=== PATIENT | male | born 1980 | race Caucasian/White ===

== ENCOUNTER 2017-01-23 20:12 | Emergency (ER) | payer OTHER ==
[2017-01-23 20:18] VITALS: BP 172/101; PULSE 88; RESP 18; O2SAT 100
--- NOTE | 2017-01-23 21:06 | ED.REPORT ---
HPI-General Illness Date of Service Jan 23, 2017 ED Provider: Dr. Yefri Hernández MD A 36 year old male with no pertinent medical history presents to the ED complaining of lightheadedness that began this morning. He initially believed that his lightheadedness was due to caffeine consumption this morning. Patient has become increasingly active over the past few weeks and he reports abstaining from caffeine use for the past 4 days prior to this morning. Patient has been pushing fluids today with no relief. He also drank one DrAysha Hunter and ate one pretzel to help relieve his symptoms. Associated symptoms today include leg "tremors" and general malaise. Patient is currently expressing concern for dehydration. He denies any cardiac history. Nursing Notes Stated Complaint: DEHYDRATED Chief Complaint: General Complaint Nursing Notes Reviewed: Yes Allergies: Coded Allergies: No Known Allergies (Unverified Allergy, Unknown, 01/23/17) General Time Seen by MD: 21:05 Chief Complaint Other (Lightheadedness) Hx Obtained From: Patient Arrived By: Walk-in Sudden in Onset?: No Onset Occurred: 9 - 12 hours ago Symptom Duration: Since onset Pertinent Negative: Pt denies other symptoms Recent Healthcare: No recent doctor visit, No recent hospitalization Past Medical History Past Medical History None reported. Past Surgical History None reported. Smoking History Former Smoker (quit three months ago) Social History Alcohol Use: Denies alcohol use Drug Use: Denies drug use Other Social History: , Local resident Ambulatory Status Independent Review of Systems + Leg "tremors" Full Review of Systems Constitutional: Reports: Malaise Neurologic: Reports: Lightheaded Complete sys rev & neg: except as marked. Physical Exam Vital Signs Vital Signs Date Time Temp Pulse Resp B/P Pulse Ox O2 Delivery O2 Flow Rate FiO2 01/23/17 22:49 78 16 149/81 99 Room Air 01/23/17 20:18 36.5 88 18 172/101 100 Room Air Initial VS: Reviewed Neck: Supple, Non-tender, Full range of motion Extremities: Vascular intact, Neuro intact, No swelling, No tenderness Psychiatric: Mood/affect normal, Behavior normal, Normal thought content General/Constitutional: Awake, Alert, No acute distress, Well appearing, Well developed Behavior: Positive: Anxious Head / Eyes: Atraumatic, Normocephalic, PERRL ENT: Atraumatic, Airway patent Mouth: Positive: Mucous membranes dry (Mild) Respiratory / Chest: Atraumatic, Breath sounds NL, Breath sounds = bilat, No respiratory distress Cardiovascular: Heart rate NL, Regular rhythm, Heart sounds NL Abdomen: Atraumatic, Soft Skin: Atraumatic, Color NL, No rash, Warm, Dry, Intact, Turgor NL Neurologic: Oriented X3, Speech NL, No motor deficits, No sensory deficits, CN II - XII intact, Reflexes equal bilat Interpretation & Diagnostics Lab Results Interpretation Result Diagram: 01/23/17213901/23/172139 Test 01/23/17 21:40 01/23/17 21:55 White Blood Count 7.7th/mm3 (3.8-10.1) Red Blood Count 4.03mil/mm3 (4.40-5.80) Hemoglobin 12.4g/dL (13.8-17.2) Hematocrit 36.1% (41.0-50.0) Mean Corpuscular Volume 89.6fL (81-100) Mean Corpuscular Hemoglobin 30.8pg (27.0-35.0) Mean Corpuscular Hemoglobin Concent 34.3% (32.0-37.0) Red Cell Distribution Width 11.6% (12.3-15.4) Platelet Count 243bil/L (150-400) Neutrophils (%) (Auto) 65.3% (40-74) Lymphocytes (%) (Auto) 23.8% (14-46) Monocytes (%) (Auto) 9.3% (4-12) Eosinophils (%) (Auto) 1.2% (0-5) Basophils (%) (Auto) 0.3% (0-3) Sodium Level 128mEq/L (134-144) Potassium Level 3.5mEq/L (3.5-5.2) Chloride Level 93mEq/L (97-108) Carbon Dioxide Level 20mmol/L (18-29) Blood Urea Nitrogen 10mg/dL (6-20) Creatinine 0.86mg/dL (0.76-1.27) Estimat Glomerular Filtration Rate 108mL/min (>59) Glucose Level 131mg/dL (60-99) Calcium Level 8.7mg/dL (8.5-10.1) Magnesium Level 2.0mg/dL (1.6-2.6) Total Bilirubin 0.4mg/dL (0.0-1.2) Aspartate Amino Transf (AST/SGOT) 17U/L (0-50) Alanine Aminotransferase (ALT/SGPT) 17U/L (0-44) Alkaline Phosphatase 60U/L (25-150) Total Protein 6.5g/dL (6.4-8.4) Albumin 4.2g/dL (3.4-5.0) Hold Quinn Top Tube Received (Received) Urine Color Straw (YELLOW) Urine Appearance Clear (CLEAR,HAZY) Urine pH 5.5 (5.0-8.0) Urine Specific [place] 1.001 (1.003-1.035) Urine Protein Negativemg/dL (NEG,TRACE) Urine Glucose (UA) Negativemg/dL (NEGATIVE) Urine Ketones Negativemg/dL (NEGATIVE) Urine Occult Blood Negative (NEGATIVE) Urine Nitrite Negative (NEGATIVE) Urine Bilirubin Negative (NEGATIVE) Urine Urobilinogen Normalmg/dL (NORMAL) Urine Leukocyte Esterase Negative (NEGATIVE) Urine RBC 0-2/hpf (0-2) Urine WBC 0-5/hpf (0-5) Urine Epithelial Cells Occasional/hpf (NONE-MOD) Urine Crystals None seen (NONE SEEN) Urine Bacteria Few/hpf (NONE-FEW) Urine Hyaline Casts None/lpf (NONE) Urine Granular Casts None seen (NONE SEEN) Urine Waxy Casts None seen (NONE SEEN) Urine Red Blood Cell Casts None seen (NONE SEEN) Urine White Blood Cell Casts None seen (NONE SEEN) Urine Mucus Present (None Seen) Urine Trichomonas None seen (NONE SEEN) Urine Yeast None (NONE SEEN) Urinalysis Comment None Urine Culture Reflexed Not indicated ECG Interpretation ECG Interpretation: Sinus rhythm Rate 79 bpm Borderline prolonged [place] interval Time: 21:31 Interpreted by: ED physician Re-Eval/Medical Decision Med Decision/Clinical Course 36-year-old presents with vague malaise and lightheadedness after drinking free water by the court over the course today. He is been more physically active than typical and felt he was dehydrated. All of his replacement is been free water. His exam is benign other than anxiety. He has no hyperreflexia ability or findings. His sodium is indeed low at 128, consistent with delusional hyponatremia. Discussed appropriate fluid replacement with him. Time of Eval: 22:51 Patient Status: Condition improved Re-Evaluation/Progress Note: Patient is informed of his lab results. All questions about his lab work are addressed. Counseled Regarding: Diagnosis, Lab results, Need for follow-up, When/why to return to ED Discharge & Departure Primary Impression: Hyponatremia Disposition: Home Discharge Condition All VS Reviewed: Yes Condition: Improved Patient Instructions: Caffeine Use (ED), Caffeine Use and Athletic Performance (GEN), Dehydration (ED), Hyponatremia (ED) Additional Instructions: Your water intake has exceeded your needs. You need to use electrolyte supplements or salt as part of your fluid replenishment. Non-sugared electrolyte replacement solutions such as Pedialyte or Nuun replacement solution may be preferable. Follow-up with your doctor in the office. You may follow up with the residency clinic if you need local care. Return for any immediate issues. Referrals: [facility] (PCP) [facility] Scribe Attestation Portions of this note were transcribed by Joann Valencia. I, Dr. Hernández personally performed the history, physical exam and medical decision-making; I reviewed and confirmed the accuracy of the information in the transcribed note. Signed by: Maycol Dey, 01/23/17 [id number]. Yefri Hernández MD Jan 23, 2017 21:06 JOANN VALENCIA Jan 23, 2017 21:12
[2017-01-23 21:46] LABS: BASOPHILS % (AUTO) 0.3 % (0-3); EOSINOPHILS % (AUTO) 1.2 % (0-5); MONOCYTES % (AUTO) 9.3 % (4-12); Mean Corpuscular Hemoglobin 30.8 pg (27.0-35.0); Mean Corpuscular Volume 89.6 fL (81-100); NEUTROPHILS % (AUTO) 65.3 % (40-74); Platelet Count 243 bil/L (150-400)
[2017-01-23 22:29] LABS: APPEARANCE,URINE CLEAR (CLEAR,HAZY); COLOR,URINE STRAW (YELLOW); OCCULT BLOOD,URINE NEGATIVE (NEGATIVE); PH,URINE 5.5 (5.0-8.0); UROBILINOGEN,URINE NORMAL (NORMAL)
[2017-01-23 22:49] VITALS: BP 149/81; PULSE 78; RESP 16; O2SAT 99
== END 2017-01-23 22:44 | disposition home or self-care (01) ==
LOC: SED 20:12
DX: E87.1 Hypo-osmolality and hyponatremia (principal); Z87.891 Personal history of nicotine dependence